=== PATIENT | male | born 1970 | race Caucasian/White ===

== ENCOUNTER 2024-06-13 06:14 | Day surgery (SDC) | payer BC, SELFPAY | END 2024-06-13 09:16 | disposition home or self-care (01) | LOC: GI 06:14 | PROVIDERS: ATTENDING PHYSICIAN Internal Medicine Gastroenterology; FAMILY PHYSICIAN Family Medicine | DX: Z12.11 Encounter for screening for malignant neoplasm of colon (principal); K64.8 Other hemorrhoids; K57.30 Diverticulosis of large intestine without perforation or abscess without bleeding; D12.3 Benign neoplasm of transverse colon | CPT/HCPCS: 45380; 88305 ==